=== PATIENT | female | born 1960 | race Caucasian/White ===

== ENCOUNTER → 2018-01-02 | Outpatient (CLI) | payer OTHER ==
[~2018-01-02] MED LIST: ALBIPROI INH; ALBU90OI INH; AZIT250 PO; CHOL10002 PO; CLIN300 PO; DOXY100 PO; Flonase 0.05% N16 GM; HYDACE5 PO; HYDGUAL120 PO; IBUP800 PO; LORA1 PO; MEDICAL MARIJUANA; NAPR550 PO; Nortriptyline H10 MG; OXYACE5T PO; PHENY100ER; PHENY100ER PO; PRED20 PO; PROACE100 PO; PRODEXEL PO; PROM25 PO; Prednisone20 MG PO; RANI150 PO; SULTRIDS PO; TRAM50 PO; Zithromax250 MG PO; [UNRECOGNIZED DRUG - OTHER]
[2018-01-02 14:08] LABS: BASOPHILS ABSOLUTE AUTO 0.03 K/mm3 (0.00-0.23); BASOPHILS PERCENT AUTO 0 % (0-2); EOSINOPHILS ABSOLUTE AUTO 0.03 K/mm3 (0.00-0.68); EOSINOPHILS PERCENT AUTO 0 % (0-6); Hemoglobin 13.7 g/dL (11.5-16.0); IMMATURE GRAN ABSOLUTE AUTO 0.06 K/mm3 (0.00-0.10); IMMATURE GRAN PERCENT AUTO 1 % (0-1); LYMPHOCYTES ABSOLUTE AUTO 1.71 K/mm3 (0.84-5.20); LYMPHOCYTES PERCENT AUTO 13 % (21-46); MONOCYTES PERCENT AUTO 8 % (4-13); Mean Corpuscular HGB 33.5 pg (26.0-34.0); Mean Corpuscular HGB Conc 34.3 g/dL (31.5-36.5); Mean Corpuscular Volume 98 fL (80-100); Mean Platelet Volume 8.5 fL (9.1-12.4); NEUTROPHILS ABSOLUTE AUTO 10.17 K/mm3 (1.96-9.15); NEUTROPHILS PERCENT AUTO 78 % (41-73); Platelet Count 257 K/mm3 (150-400); RDW Coefficient Variation 13.9 % (11.7-14.2); RDW Standard Deviation 50.1 fL (35.1-46.3); Red Blood Cell Count 4.09 M/mm3 (3.80-5.20)
[2018-01-02 14:18] LABS: Alanine Aminotransfer (ALT/SGP 23 U/L (12-78); Albumin, Blood 3.6 g/dL (3.4-5.0); Albumin/Globulin Ratio 0.9 (0.8-1.8); Alk Phos 168 U/L (40-126); Anion Gap 12 mmol/L (6-16); Aspartate Aminotrans (AST/SGOT 18 U/L (12-37); Bilirubin, Total 0.4 mg/dL (0.1-1.0); Blood Urea Nitrogen 12 mg/dL (8-24); Bun/Creatinine Ratio 14.8 (12.0-20.0); CO2, Blood 24 mmol/L (21-32); Calcium, Blood 9.1 mg/dL (8.5-10.1); Chloride, Blood 102 mmol/L (98-108); Creatinine, Blood 0.81 mg/dL (0.40-1.00); Globulin, Blood 4.2 g/dL (2.2-4.0); Glomerular Filtration Rate >60 (60-); Glucose, Blood 106 mg/dL (70-99); Sodium, Blood 138 mmol/L (136-145); Total Protein, Blood 7.8 g/dL (6.4-8.2)
== END | disposition home or self-care (01) ==
LOC: LAB EV 14:04 → LAB SHORT 14:04
PROVIDERS: Physician Assistant
DX: R06.02 Shortness of breath (principal)
CPT/HCPCS: 80053; 85025

== ENCOUNTER 2018-12-21 18:28 | Emergency (ER) | payer OTHER ==
[~2018-12-21] VITALS: Ht 160 cm; Wt 59.0 kg
[2018-12-21] MEDS ORDERED: Norco 5-325 Ta1 EACH PO (19:24)
== END 2018-12-21 19:50 | disposition home or self-care (01) ==
LOC: ER 18:28
DX: T23.302A Burn of third degree of left hand, unspecified site, initial encounter (principal); T31.0 Burns involving less than 10% of body surface; E78.00 Pure hypercholesterolemia, unspecified; F17.200 Nicotine dependence, unspecified, uncomplicated; Z88.0 Allergy status to penicillin; Z88.5 Allergy status to narcotic agent; Z87.442 Personal history of urinary calculi; Z79.899 Other long term (current) drug therapy; X16.XXXA Contact with hot heating appliances, radiators and pipes, initial encounter
CPT/HCPCS: 16020; 99283-25

== ENCOUNTER 2018-12-22 13:35 | Day surgery (SDC) | payer OTHER ==
[~2018-12-22 13:35] MED LIST changes: +Norco 5-325 Ta1 EACH PO
--- NOTE | 2018-12-22 16:13 | NUR ---
THIS PT GAVE ME PERMISSION TO PROVIDE CARE TO HER ON 12/22/18.
== END 2018-12-22 23:05 | disposition home or self-care (01) ==
LOC: WOUND 13:35
DX: T23.262A Burn of second degree of back of left hand, initial encounter (principal); M19.041 Primary osteoarthritis, right hand; G56.03 Carpal tunnel syndrome, bilateral upper limbs; M06.9 Rheumatoid arthritis, unspecified; G40.909 Epilepsy, unspecified, not intractable, without status epilepticus; Z72.0 Tobacco use
CPT/HCPCS: G0463

== ENCOUNTER 2018-12-24 14:28 | Day surgery (SDC) | payer OTHER | END 2018-12-24 23:49 | disposition home or self-care (01) | LOC: WOUND 14:28 | DX: T23.262A Burn of second degree of back of left hand, initial encounter (principal); M19.041 Primary osteoarthritis, right hand; G56.03 Carpal tunnel syndrome, bilateral upper limbs; M06.9 Rheumatoid arthritis, unspecified; G40.909 Epilepsy, unspecified, not intractable, without status epilepticus; Z72.0 Tobacco use ==

== ENCOUNTER 2018-12-28 14:06 | Day surgery (SDC) | payer OTHER | END 2018-12-28 22:50 | disposition home or self-care (01) | LOC: WOUND 14:06 | DX: T23.262A Burn of second degree of back of left hand, initial encounter (principal); M19.041 Primary osteoarthritis, right hand; G56.03 Carpal tunnel syndrome, bilateral upper limbs; Z72.0 Tobacco use | CPT/HCPCS: G0463 ==

== ENCOUNTER 2018-12-31 08:00 | Day surgery (SDC) | payer OTHER | END 2018-12-31 23:30 | disposition home or self-care (01) | LOC: WOUND 08:00 | DX: T23.362A Burn of third degree of back of left hand, initial encounter (principal) ==

== ENCOUNTER 2019-01-07 08:00 | Day surgery (SDC) | payer OTHER | END 2019-01-07 23:02 | disposition home or self-care (01) | LOC: WOUND 08:00 | DX: T23.362A Burn of third degree of back of left hand, initial encounter (principal); M19.041 Primary osteoarthritis, right hand; G56.03 Carpal tunnel syndrome, bilateral upper limbs; M06.9 Rheumatoid arthritis, unspecified | CPT/HCPCS: G0463 ==

== ENCOUNTER 2019-01-14 08:00 | Day surgery (SDC) | payer OTHER | END 2019-01-14 22:58 | disposition home or self-care (01) | LOC: WOUND 08:00 | DX: T23.262A Burn of second degree of back of left hand, initial encounter (principal); M25.541 Pain in joints of right hand; M06.9 Rheumatoid arthritis, unspecified; M19.041 Primary osteoarthritis, right hand; G56.03 Carpal tunnel syndrome, bilateral upper limbs; Z74.09 Other reduced mobility; Z72.0 Tobacco use | CPT/HCPCS: G0463 ==

== ENCOUNTER 2019-01-21 08:02 | Day surgery (SDC) | payer OTHER | END 2019-01-22 22:59 | disposition home or self-care (01) | LOC: WOUND 08:02 | DX: T23.362A Burn of third degree of back of left hand, initial encounter (principal); M25.541 Pain in joints of right hand; Z74.09 Other reduced mobility ==

== ENCOUNTER 2019-01-28 00:16 | Day surgery (SDC) | payer OTHER | END 2019-01-28 23:16 | disposition home or self-care (01) | LOC: WOUND 00:16 | DX: T23.362A Burn of third degree of back of left hand, initial encounter (principal); T23.222A Burn of second degree of single left finger (nail) except thumb, initial encounter; M18.9 Osteoarthritis of first carpometacarpal joint, unspecified; G40.909 Epilepsy, unspecified, not intractable, without status epilepticus; Z72.0 Tobacco use; Z74.09 Other reduced mobility | CPT/HCPCS: G0463 ==

== ENCOUNTER 2019-02-04 00:34 | Day surgery (SDC) | payer OTHER | END 2019-02-04 22:47 | disposition home or self-care (01) | LOC: WOUND 00:34 | DX: T23.262A Burn of second degree of back of left hand, initial encounter (principal); G40.909 Epilepsy, unspecified, not intractable, without status epilepticus; Z74.09 Other reduced mobility | CPT/HCPCS: G0463 ==

== ENCOUNTER 2019-09-09 17:22 | Inpatient (IN) | payer OTHER ==
[~2019-09-09] VITALS: Ht 167.6 cm; Wt 56.6 kg
[2019-09-09 17:58] LABS: BASOPHILS PERCENT AUTO 0 % (0-2); EOSINOPHILS PERCENT AUTO 0 % (0-6); Hematocrit 42.7 % (33.0-51.0); Hemoglobin 14.3 g/dL (11.5-16.0); IMMATURE GRAN ABSOLUTE AUTO 0.04 K/mm3 (0.00-0.10); IMMATURE GRAN PERCENT AUTO 1 % (0-1); LYMPHOCYTES ABSOLUTE AUTO 0.37 K/mm3 (0.84-5.20); LYMPHOCYTES PERCENT AUTO 5 % (21-46); MONOCYTES ABSOLUTE AUTO 0.38 K/mm3 (0.16-1.47); MONOCYTES PERCENT AUTO 5 % (4-13); Mean Corpuscular HGB 33.1 pg (26.0-34.0); Mean Corpuscular HGB Conc 33.5 g/dL (31.5-36.5); Mean Corpuscular Volume 99 fL (80-100); Mean Platelet Volume 9.2 fL (9.1-12.4); NEUTROPHILS ABSOLUTE AUTO 6.55 K/mm3 (1.96-9.15); NEUTROPHILS PERCENT AUTO 89 % (41-73); Platelet Count 171 K/mm3 (150-400); RDW Coefficient Variation 12.7 % (11.7-14.2); RDW Standard Deviation 46.6 fL (35.1-46.3); Red Blood Cell Count 4.32 M/mm3 (3.80-5.20); White Blood Cell Count 7.34 K/mm3 (4.00-11.30)
[2019-09-09 18:15] LABS: Alanine Aminotransfer (ALT/SGP 39 U/L (12-78); Albumin, Blood 3.7 g/dL (3.4-5.0); Albumin/Globulin Ratio 0.9 (0.8-1.8); Alk Phos 147 U/L (50-136); Anion Gap 7 mmol/L (6-16); Aspartate Aminotrans (AST/SGOT 48 U/L (12-37); Bilirubin, Total 0.2 mg/dL (0.1-1.0); Blood Urea Nitrogen 18 mg/dL (8-24); Bun/Creatinine Ratio 24.2 (12.0-20.0); CO2, Blood 24 mmol/L (21-32); Calcium, Blood 8.2 mg/dL (8.5-10.1); Chloride, Blood 102 mmol/L (98-108); Creatinine, Blood 0.74 mg/dL (0.40-1.00); Globulin, Blood 3.9 g/dL (2.2-4.0); Glomerular Filtration Rate >60 (60-); Glucose, Blood 224 mg/dL (70-99); Potassium, Blood 3.5 mmol/L (3.5-5.5); Sodium, Blood 133 mmol/L (136-145); Total Protein, Blood 7.6 g/dL (6.4-8.2)
[2019-09-09] MEDS ORDERED: Aspir 8181 MG PO (21:10)
[2019-09-09] MEDS ORDERED: PHENY100ER PO (21:10)
[2019-09-09 22:09] LABS: U Amphetamine Screen Not Detected; U Barbituate Screen DETECTED; U Benzodiazapine Screen Not Detected; U Buprenorphine Screen Not Detected; U Cannabinoids Screen DETECTED; U Cocaine Screen Not Detected; U Methadone Screen Not Detected; U Methamphetamine Screen Not Detected; U Opiates Screen Not Detected; U Oxycodone Screen Not Detected; U Phencyclidine Screen Not Detected; U Propoxyphene Screen Not Detected
[2019-09-10 00:33] LABS: C-REACTIVE PROTEIN, EXT RANGE 6.46 mg/dL (0.000-0.300)
[2019-09-10 00:34] LABS: Source, Urine Catheter
[2019-09-10 00:36] LABS: Bilirubin, Urine Neg (Neg); Blood, Urine 4+ (Neg); Glucose Qualitative, Urine 4+ (Neg); Ketones, Urine 2+ (Neg); Leukocyte Esterase, Urine Neg (Neg); Nitrite, Urine Neg (Neg); Protein, Urine 2+ (Neg); Urobilinogen, Urine NORM (Normal)
[2019-09-10 00:42] LABS: Color, Urine Yellow (P-Yellow)
[2019-09-10 00:43] LABS: Amorphous Mod (0-Heavy); Appearance, Urine Hazy (Clear); Bacteria Rare /hpf; Mucus Light (0-Heavy); Red Blood Cells, Urine 0-2 /hpf (0-2); Squamous Epithelial Cells Few /hpf (Few); White Blood Cells, Urine Rare /hpf (0-5)
[2019-09-10 00:51] LABS: Creatine Kinase MB 12.6 ng/mL (0.0-3.6); Creatine Kinase MB Index 4.3 (0.0-4.0)
--- NOTE | 2019-09-10 01:00 | NUR ---
PT ADMITTED TO ROOM ICU 10 FROM ED UNDER ICU STATUS. PT ARRIVES AT MIDNIGHT. PT WAS SOMULENT AND UNRESPONSIVE TO VERBAL OR MODERATE TACTILE STIMULI. PT S/P SEIZURE, AND ATIVAN. PT DOES HAVE GRIMACE WHILE HAVING PCR SWAB DONE. PT'S COMES TO ROOM. STATES THAT PT'S NORMAL SEIZURE ACTIVITY WAS NOT WHAT HE SAW PT DO TONIGHT. STATES HER LAST SEIZURE HAD BEEN APPROX FOUR WEEKS AGO. IS ABLE TO HELP WITH ADMISSION PROCESS. WILL REVIEW CHART AND PLAN OF CARE FOR THIS PT.
--- NOTE | 2019-09-10 01:40 | NUR ---
NG PLACEMEMT NG PLACED TO RIGHT NARE FOR MEDS. NO RESPONSE FROM PT WITH PLACEMENT.
--- NOTE | 2019-09-10 03:03 | NUR ---
NO SEIZURE ACTIVITIES NOTED. NGT HAS BEEN PLACED. LABS HAVE BEEN CALLED TO HOSPITALIST. ORDERS HAVE BEEN RECEIVED. HAVE BEEN ABLE TO TITRATE OXYGEN DOWN TO 2 L/M. MAINTAINS > 90 PERCENT SATURATIONS.
[2019-09-10 04:36] LABS: Adenovirus Not Detected (NOT DETECT); Coronavirus 229E Not Detected (NOT DETECT); Coronavirus HKU1 Not Detected (NOT DETECT); Coronavirus NL63 Not Detected (NOT DETECT); Coronavirus OC43 Not Detected (NOT DETECT); Human Metapneumovirus Not Detected (NOT DETECT)
[2019-09-10 04:37] LABS: Bordetella pertussis Not Detected (NOT DETECT); Chlamydophila pneumoniae Not Detected (NOT DETECT); Human Rhinovirus/Enterovirus Not Detected (NOT DETECT); Influenza A Not Detected (NOT DETECT); Influenza A/2009-H1 Not Detected (NOT DETECT); Influenza A/H1 Not Detected (NOT DETECT); Influenza A/H3 Not Detected (NOT DETECT); Influenza B Detected (NOT DETECT); Mycoplasma pneumoniae Not Detected (NOT DETECT); Parainfluenza Virus 1 Not Detected (NOT DETECT); Parainfluenza Virus 2 Not Detected (NOT DETECT); Parainfluenza Virus 3 Not Detected (NOT DETECT); Parainfluenza Virus 4 Not Detected (NOT DETECT); Respiratory Syncytial Virus Not Detected (NOT DETECT)
--- NOTE | 2019-09-10 06:45 | NUR ---
PT HAS NOT HAD ANY SEIZURE ACTIVITY SINCE ARRIVING TO ICU. CONTINUES ON HEPARIN DRIP AT 13 UNITS/KG/HOUR. DOES NOT AWAKEN TO TACTILE OR VERBAL STIMULI. HAS AWAKENED AT ONE POINT AND PULLED OUT HER NGT. NO NOTEABLE RHYTHM CHANGES FROM CARIAC MONITOR. WILL CONTINUE TO MONITOR PT, AND WILL REPORT OFF TO ONCOMING RN.
[2019-09-10 06:58] LABS: BASOPHILS PERCENT AUTO 0 % (0-2); EOSINOPHILS ABSOLUTE AUTO 0.01 K/mm3 (0.00-0.68); EOSINOPHILS PERCENT AUTO 0 % (0-6); Hematocrit 36.7 % (33.0-51.0); Hemoglobin 12.4 g/dL (11.5-16.0); IMMATURE GRAN ABSOLUTE AUTO 0.03 K/mm3 (0.00-0.10); IMMATURE GRAN PERCENT AUTO 0 % (0-1); LYMPHOCYTES ABSOLUTE AUTO 0.85 K/mm3 (0.84-5.20); LYMPHOCYTES PERCENT AUTO 9 % (21-46); MONOCYTES ABSOLUTE AUTO 0.57 K/mm3 (0.16-1.47); MONOCYTES PERCENT AUTO 6 % (4-13); Mean Corpuscular HGB Conc 33.8 g/dL (31.5-36.5); Mean Corpuscular Volume 98 fL (80-100); Mean Platelet Volume 9.6 fL (9.1-12.4); NEUTROPHILS ABSOLUTE AUTO 7.92 K/mm3 (1.96-9.15); NEUTROPHILS PERCENT AUTO 84 % (41-73); Platelet Count 153 K/mm3 (150-400); RDW Coefficient Variation 12.8 % (11.7-14.2); RDW Standard Deviation 45.4 fL (35.1-46.3); Red Blood Cell Count 3.76 M/mm3 (3.80-5.20); White Blood Cell Count 9.38 K/mm3 (4.00-11.30)
[2019-09-10 07:22] LABS: Anion Gap 8 mmol/L (6-16); Blood Urea Nitrogen 24 mg/dL (8-24); Bun/Creatinine Ratio 44.4 (12.0-20.0); CO2, Blood 21 mmol/L (21-32); Calcium, Blood 7.5 mg/dL (8.5-10.1); Chloride, Blood 109 mmol/L (98-108); Creatinine, Blood 0.54 mg/dL (0.40-1.00); Glomerular Filtration Rate >60 (60-); Glucose, Blood 131 mg/dL (70-99); Potassium, Blood 3.7 mmol/L (3.5-5.5); Sodium, Blood 138 mmol/L (136-145)
--- NOTE | 2019-09-10 07:39 | NUR ---
ASSUMED CARE RECEIVED REPORT FROM KOFFI YOUNG. PT IS SLEEPING IN BED. PADS ARE COVERING SIDE RAILS OF BED FOR SEIZURE PRECAUTIONS. SHE IS ON 2L NC. BED LOW AND LOCKED. CALL LIGHT WITHIN REACH.
--- NOTE | 2019-09-10 08:40 | NUR ---
BO SAW PT, TALKED TO AND MADE ORDERS. STARTING ON LEVAQUIN AND TAMIFLU, CHANGING FLUID ORDERS. SEGUN CAME IN AND TALKED TO . STATES HE WANTS TO DO AN ECHO, BUT THAT THERE IS NO REASON TO TAKE HER TO [facility] AT THIS MOMENT. WILL REASSESS AFTER SHE SEEKS TREATMENT AND AFTER HER ECHO.
--- NOTE | 2019-09-10 09:19 | NUR ---
PT CURRENTLY LETHARGIC, AND SLEEPING. MAY NOT BE ABLE TO SWALLOW PILLS AT THIS TIME.
--- NOTE | 2019-09-10 10:34 | NUR ---
HOLDING 0900 MEDS IN LOCK BOX WHILE PT SLEEPS A LITTLE LONGER, SHE IS TOO LETHARGIC AND HALF ASLEEP (WHEN AWAKE) TO SWALLOW MEDS.
--- NOTE | 2019-09-10 11:27 | NUR ---
Echocardiogram completed.
--- NOTE | 2019-09-10 13:16 | NUR ---
WHEN I WAS AT LUNCH - PT WAS HAVING 7/10 CHEST PAIN, THAT WAS UNCHANGED BY INSPIRATION AND WAS A TIGHT/PRESSURE TYPE OF PAIN. I DID ANOTHER EKG WHEN I WAS OFF MY BREAK SHORTLY AFTER THIS OCCURED, HAD LAB DRAW THE TROPONIN THAT WAS SCHEDULED SLIGHTLY LATER FOR THAT TIME. AND I NOTIFIED DR. SORIANO. RIGHT BEFORE I CALLED DR. SORIANO SHE STATED THAT HER PAIN WENT DOWN TO A 2/10. I WILL CALL CARDIOLOGY WHEN TROPONIN LEVELS ARE BACK. EKG SEEMED TO BE UNREMARKABLE BY MY EYES. NO OBVIOUS ST CHANGES. FAR DEVELOPING NEURO STATUS. SHE REMAINS LETHARGIC AND TIRED. SHE IS AROUSABLE, AND CAN FOLLOW COMMANDS AND COMMUNICATE HER NEEDS. SHE IS ORIENTED TO THE [facility] OF LUNCH TIME, AND THIS MORNING KNEW SHE WAS IN THE HOSPITAL. KNEW HER NAME. UNSURE OF THE SITUATION, YET THINKS SHE DOES
--- NOTE | 2019-09-10 15:44 | NUR ---
PT LEFT UNIT FROM ~[id number] TO GET AN MRI OF HER HEAD. SHE TOLERATED TRIP WELL, SHE WAS ON THE MONITOR. VITALS REMAINED STABLE.
--- NOTE | 2019-09-10 18:47 | NUR ---
SHIFT SUMMARY PT STARTED SHIFT EXTREEMLY LETHARGIC, AND BARLY EVEN OPENING HER EYES. PT REMAINS TIRED, BUT IS MUCH MORE ALERT. SHE CAN TELL ME THE YEAR, WHERE SHE IS (CITY, AND HOSPITAL) AND HER NAME. ALTHOUGH AT ONE POINT SHE DID NOT KNOW WHO HER WAS. DURING LUNCH TIME SHE HAD CHEST PAIN 7/10, PRESSURE - AFTER A 12LEAD EKG SHOWED NOTHING NEW, AND A TROPONIN TRENDING DOWNWARD, WELL HER SAYING IT SUBSIDED TO A 2/10, IT WAS NO LONGER A CONCERN. I DID CONTACT DR SORIANO AND TERRANCE TO BE SAFE. SHE HAS HAD NO PAIN OTHER THAN THAT EVENT AND THE ONLY DISCOMFORT SHE HAS IS A COUGH AND BEING COLD. DESPITE HER FEVER. SHE HAS BEEN ANYWHERE FROM 99-100.6. I VERIFIED WITH DR SORIANO EARLIER TODAY ABOUT RUNNING BOTH FLUIDS (LR @ 150M/H AND NS WITH KCL AT 100M/H) AND HE CONFIRMED. PT RECEIVED 2.5L IN FLUIDS, AND HAD 450ML URINE OUTPUT. PT APPEARS TO BE VERY DRY THOUGH. BED IS LOW AND LOCKED. CALL LIGHT WITHIN REACH. AT BEDSIDE.
--- NOTE | 2019-09-10 22:06 | NUR ---
ASSUMED CARE OF PT AT 2200. PATIENT DROWSY BUT ABLE TO FOLLOW COMMANDS AND HOLD CONVERSATION PTT DRAWN BY LAB, NANO/TEMP IN PLACE. LR @ 150, NS+20K @ 100, HEPARIN @ 12.2. TEMP FOR MCGILL 101.1, PT STATES SHE IS COLD, CHILLS. NO PRODUCTIVE COUGH
--- NOTE | 2019-09-10 22:52 | NUR ---
REPORT GIVEN TO HANNAH ELAINE. HE IS TO ASSUME CARE.
[2019-09-11 06:01] LABS: BASOPHILS PERCENT AUTO 0 % (0-2); EOSINOPHILS PERCENT AUTO 0 % (0-6); Hemoglobin 10.6 g/dL (11.5-16.0); IMMATURE GRAN ABSOLUTE AUTO 0.05 K/mm3 (0.00-0.10); IMMATURE GRAN PERCENT AUTO 1 % (0-1); LYMPHOCYTES ABSOLUTE AUTO 0.95 K/mm3 (0.84-5.20); LYMPHOCYTES PERCENT AUTO 12 % (21-46); MONOCYTES ABSOLUTE AUTO 0.47 K/mm3 (0.16-1.47); MONOCYTES PERCENT AUTO 6 % (4-13); Mean Corpuscular HGB 33.1 pg (26.0-34.0); Mean Corpuscular HGB Conc 34.2 g/dL (31.5-36.5); Mean Corpuscular Volume 97 fL (80-100); Mean Platelet Volume 9.8 fL (9.1-12.4); NEUTROPHILS ABSOLUTE AUTO 6.54 K/mm3 (1.96-9.15); NEUTROPHILS PERCENT AUTO 82 % (41-73); Platelet Count 137 K/mm3 (150-400); RDW Standard Deviation 46.5 fL (35.1-46.3); White Blood Cell Count 8.01 K/mm3 (4.00-11.30)
[2019-09-11 06:17] LABS: Albumin, Blood 2.5 g/dL (3.4-5.0); Anion Gap 9 mmol/L (6-16); Blood Urea Nitrogen 19 mg/dL (8-24); Bun/Creatinine Ratio 35.1 (12.0-20.0); CO2, Blood 19 mmol/L (21-32); Calcium, Blood 7.8 mg/dL (8.5-10.1); Chloride, Blood 113 mmol/L (98-108); Creatinine, Blood 0.54 mg/dL (0.40-1.00); Glomerular Filtration Rate >60 (60-); Glucose, Blood 109 mg/dL (70-99); Magnesium, Blood 1.7 mg/dL (1.6-2.4); Phosphorus, Blood 1.6 mg/dL (2.5-4.9); Potassium, Blood 3.4 mmol/L (3.5-5.5); Sodium, Blood 141 mmol/L (136-145)
--- NOTE | 2019-09-11 06:32 | NUR ---
PT ALERT, STILL DROWSY, PT HAD CHILLS AND FEVER, TYLENOL GIVEN X2. PT ON LR @ 150, NS+20K @ 100 AND HEPARIN @ 12.2. PT WAS ABLE TO PASS SWALLOW STUDY. PENDING DIET ORDER IN AM. PT HAS MCGILL INTACT AND PATENT. PT REFUSED BEDPAN BUT WAS ABLE TO TRANSFER TO BEDSIDE COMMODE AND HAVE LARGE BOWEL MOVEMENT. PT HAS UNSTAEDY GAIT AND NEED SUPERVISION WHILE OUT OF BED. PT EXERTED SELF POST BM AND TRANSFER BACK TO BED. NO ACUTE EVENTS WILL CONTINUE TO MONITOR.
--- NOTE | 2019-09-11 08:00 | NUR ---
ASSUMED CARE RECEIVED REPORT FROM ARGENTINA YOUNG. PT IS LYING IN BED ON PHONE TALKING TO CHILD. SHE IS MORE ALERT AND ORIENTED TODAY. SHE KNOWS WHY SHE IS HERE, AND WHERE THAT IS, WHO HER IS, AND THE YEAR. PHYSICAL THERAPY IS IN ROOM WITH PT. BED IS LOW AND LOCKED. SHE IS ON ROOM AIR.
--- NOTE | 2019-09-11 17:50 | NUR ---
SHIFT SUMMARY ASSUMED CARE AT APPROXIMATELY 1710. PT ALERT AND ORIENTED. VS STABLE. HR NSR. PT SHAKING AND STATES SHE IS COLD. ORAL TEMPERATURE OF 99.2. MCGILL CATHETER PATENT AND DRAINING. PT ORIENTED TO NEW ROOM AND DEPARTMENT. FAMILY AT BEDSIDE. WILL CONTINUE TO MONITOR AND REPOR TO ONCOMING RN. CALL LIGHT IN REACH.
--- NOTE | 2019-09-11 17:54 | NUR ---
PT LEFT ICU TO PCU 6. SHE HAD STABLE VITALS, ON ROOM AIR. HEPARIN WAS INFUSING AT 12UNITS/KG/HR. SHE HAD MAJOR CHILLS, FEBRILE 100.0-100.9 ALL DAY, HOT TO TOUCH. BUT FELT EXTREEMLY COLD. NO PAIN, SOB, OR OTHER DISCOMFORTS. SHE HAD ADEQUATE URINE OUTPUT. BED LOW AND LOCKED. WITH PT.
--- NOTE | 2019-09-12 06:07 | NUR ---
SHIFT SUMMARY PT C/O CHILLS; VSS; TEMP OF 99-100 T/O SHIFT; PT CALM AND COMPLIANT W/ CARE; O2 SATS >92 ON RA; PT SLEPT SEVERAL HOURS IN BETWEEN INTERVENTIONS; ENCOURAGED PO FLUIDS; PT DRANK SM AMOUNT FOR PO MEDS; TEMP MCGILL DRAINING DK YELLOW; CALL LIGHT IN REACH; BED IN LOWEST POSITION;
--- NOTE | 2019-09-12 18:00 | NUR ---
SHIFT SUMMARY PT ALERT AND ORIENTED. VS STABLE. O2 SATS HAVE REMAINED ABOVE 90% ON RA. BP STABLE. HR NSR. PT DENIES ANY PAIN. MCGILL CATHETER REMOVED THIS SHIFT AND PT HAS VOIDED SINCE REMOVAL. PT ABLE TO AMBULATE TO BATHROOM NEEDED WITH SBA. PT HAS BEEN AFEBRILE THIS SHIFT. PT CHANGED TO MEDICAL STATUS AND TRANSFERRED UP BY BED. REPORT GIVEN TO KAY YOUNG.
--- NOTE | 2019-09-12 18:26 | NUR ---
PT TRANSFERED. PT TRANSFERED AT 1820. PT ORIENTED TO ROOM. CALL LIGHT IN REACH. AT BEDSIDE. PT DENIES SOB, CP, OR PAIN. REPORT RECIEVED FROM CECELIA EWING RN. PT DENIES NEEDS AT THIS TIME. WILL CONTINUE TO MONITOR UNTIL TURNOVER IS COMPLETE.
--- NOTE | 2019-09-12 22:43 | NUR ---
BEGINNING SHIFT SUMMARY ASSUMED CARE OF PT AT 1900. PT IS A/O X4, PT IS SHIVERING AND STATES THAT SHE IS COLD, PT IS WITHOUT FEVER AT THIS TIME. HEART SOUNDS REGULAR, WHEEZES HEARD T/O LUNG FEILDS. PT DENIES SOB, DYSPNEA, OR CP AT THIS TIME. PT IS CURRENTLY SLEEPING, CALL LIGHT IN REACH, BED IN LOWEST POSTION, WILL CONTINUE TO MONITOR.
--- NOTE | 2019-09-13 06:27 | NUR ---
END SHIFT SUMMARY NO ACUTE CHANGES NOTED T/O THE NIGHT. PT SLEPT T/O THE NIGHT. PT HAS BEEN FREE OF FEVER TONIGHT. PT IS CURRENTLY SLEEPING, CALL LIGHT IN REACH, BED IN LOWEST POSITION, WILL CONTINUE TO MONITOR UNTIL DAYSHIFT NURSE ARRIVES.
[2019-09-13] MEDS ORDERED: LEVE500 PO (15:07)
[2019-09-13] MEDS ORDERED: LEVFLO500 PO (15:11)
[2019-09-13] MEDS ORDERED: OSEL75CA PO (15:11)
--- NOTE | 2019-09-13 15:19 | NUR ---
MORNING ASSESSMENT: PATIENT DENIED CHEST PAIN OR DISCOMFORT THROUGHOUT MORNING. PATIENT REPORTS FEELINGS OF IMPATIENCE AND READINESS TO GO HOME. NO SEIZURE ACTIVITY THIS MORNING OR CHANGES TO NEURO STATUS. PATIENT TOLERATED NPO STATUS. PATIENT LEFT UNIT FOR ANGIOGRAM THIS AFTERNOON AND TRANSFERRED TO PCU. PATIENT'S AT HER SIDE THROUGHOUT THIS PROCESS.
--- NOTE | 2019-09-13 17:03 | NUR ---
UPDATE ASSUMED CARE AT APPROXIMATELY 1605. PT CAME FROM HEAD OF ENGLISH WITH RIGHT RADIAL SITE. ALL AIR HAS BEEN REMOVED FROM TR BAND WITH NO SIGNS OF BLEEDING OR HEMATOMA. PT DENIES ANY PAIN. DISCHARGE HAS BEEN COMPLETE AND GONE OVER WITH PT AND . NEW MEDICATIONS EDUATED TO PT. ONCE RIGHT RADIAL SITE IS COMPLETELY RECOVERED, PT ABLE TO DISCHARGE.
== END 2019-09-13 17:50 | disposition home or self-care (01) | DRG 871 ==
LOC: ER 17:22 → ICUW 23:35 → PCU 09-11 17:00 → MEDS 09-12 18:18 → PCU 09-13 14:14
PROVIDERS: Emergency Medicine; Family Medicine; Nurse Practitioner Acute Care; ADMIT Hospitalist
PROC: 4A023N7 Measurement of Cardiac Sampling and Pressure, Left Heart, Percutaneous Approach (ICD-10-PCS; principal; 2019-09-13)
PROC: B211YZZ Fluoroscopy of Multiple Coronary Arteries using Other Contrast (ICD-10-PCS; 2019-09-13)
DX: A41.89 Other specified sepsis (principal); J96.01 Acute respiratory failure with hypoxia; J69.0 Pneumonitis due to inhalation of food and vomit; J10.1 Influenza due to other identified influenza virus with other respiratory manifestations; R47.02 Dysphasia; R79.89 Other specified abnormal findings of blood chemistry; R56.9 Unspecified convulsions; I25.10 Atherosclerotic heart disease of native coronary artery without angina pectoris; Z86.73 Personal history of transient ischemic attack (TIA), and cerebral infarction without residual deficits; Z79.82 Long term (current) use of aspirin; F17.210 Nicotine dependence, cigarettes, uncomplicated
CPT/HCPCS: 0099U; 36415; 51702; 70450; 70496; 70498; 70551; 71045; 71275; 76937; 80048; 80053; 80069; 80185; 81001; 82550; 82553; 83605; 83735; 84484; 85025; 85730; 86140; 87040; 90686; 92610; 93005; 93010; 93306; 93458; 96365-59; 96366; 96375-59; 96376; 97110; 97163; 97165; 97530; 97535; 99152; 99153; 99285-25; A9270; C1769; C1894; G0008; J0456; J0696; J1644; J1650; J1953; J1956; J2060; J2250; J3010; J3480; J7030; J7050; J7120; P9612; Q9967

== ENCOUNTER → 2019-11-01 | Outpatient (CLI) | payer OTHER ==
[~2019-11-01] MED LIST changes: +Aspir 8181 MG PO; +LEVE500 PO; +LEVFLO500 PO; +OSEL75CA PO
[2019-11-05 07:09] LABS: ANABASINE <1 ng/mL (.); COTININE <10 ng/mL (.); NICOTINE <10 ng/mL (.)
== END ==
LOC: LAB SHORT 11:12 → LAB SRC 11:12
PROVIDERS: Nurse Practitioner Family
DX: Z09 Encounter for follow-up examination after completed treatment for conditions other than malignant neoplasm (principal); Z87.891 Personal history of nicotine dependence
CPT/HCPCS: G0480

== ENCOUNTER → 2020-08-13 | Outpatient (CLI) | payer OTHER | LOC: LAB SRC 15:00 → LAB SHORT 15:00 | DX: R35.0 Frequency of micturition (principal); R30.9 Painful micturition, unspecified | CPT/HCPCS: 87077; 87086; 87186 ==

== ENCOUNTER → 2021-03-22 | Outpatient (CLI) | payer OTHER ==
[2021-04-02 10:10] LABS: Stool Occult Bld Immuno 1 Negative (NEGATIVE)
== END ==
LOC: LAB SHORT 07:30 → LAB FUT 03-05 14:45
PROVIDERS: Nurse Practitioner Family
DX: R63.4 Abnormal weight loss (principal)
CPT/HCPCS: G0328

== ENCOUNTER → 2021-04-12 | Outpatient (CLI) | payer OTHER ==
[2021-04-12 14:00] LABS: Source, Urine Clean Catch
[2021-04-12 15:26] LABS: Appearance, Urine Hazy (Clear); Bilirubin, Urine Neg (Neg); Blood, Urine 2+ (Neg); Color, Urine Yellow (P-Yellow); Glucose Qualitative, Urine Neg (Neg); Ketones, Urine 1+ (Neg); Leukocyte Esterase, Urine 1+ (Neg); Nitrite, Urine Pos (Neg); Protein, Urine 2+ (Neg); Specific Gravity, Urine 1.025 (1.003-1.022); Urobilinogen, Urine 1+ (Normal)
[2021-04-12 16:09] LABS: Squamous Epithelial Cells Few /hpf (Few)
[2021-04-12 16:10] LABS: Bacteria Many /hpf; Calcium Oxalate Crystals Many /hpf
== END ==
LOC: LAB SHORT 13:33 → LAB 13:33 → LAB FUT 04-11 16:45
PROVIDERS: Nurse Practitioner Family
DX: R30.0 Dysuria (principal); Z88.0 Allergy status to penicillin; Z88.5 Allergy status to narcotic agent
CPT/HCPCS: 81001; 87077; 87086; 87186

== ENCOUNTER → 2024-08-09 | Outpatient (CLI) | payer OTHER | END | disposition home or self-care (01) | LOC: LAB 17:09 → LAB SHORT 17:09 | DX: R39.15 Urgency of urination (principal) | CPT/HCPCS: 87086 ==